=== PATIENT | male | born 1965 | race Caucasian/White ===

== ENCOUNTER 2016-04-16 04:10 | Emergency (ER) | payer MEDICAID ==
[~2016-04-16] VITALS: Ht 177.8 cm; Wt 102.5 kg
[~2016-04-16 04:10] MED LIST: CALC667T2 PO; LISI2.5T59 PO; NEPH PO
[2016-04-16 04:13] VITALS: Ht 177.8 cm; Wt 102.5 kg
[2016-04-16] MEDS ORDERED: SOD CHLORIDE 0.9% 1,000 ML IV STA (06:11)
[2016-04-16] MEDS ORDERED: METOCLOPRAMIDE 10 MG INJ IV STA (06:11)
[2016-04-16] MEDS ORDERED: DIPHENHYDRAMINE 50 MG INJ IV STA (06:11)
[2016-04-16] MEDS ORDERED: ONDANSETRON (ODT) 4 MG TAB ODT STA (06:47)
[2016-04-16] MEDS ORDERED: ACETAMINOPHEN 500 MG TAB PO STA (06:59)
[2016-04-16] MEDS ORDERED: OXYCODONE/ACETAMINOPHEN (5/325) TAB PO ONE (07:00)
--- NOTE | 2016-04-16 07:35 | RADRPT ---
PROCEDURE: CT Cervical Spine. CLINICAL INDICATION: Neck pain TECHNIQUE: A CT of the cervical spine was performed on a [employer] 64-slice CT scanner utilizi ng high-resolution axial imaging from the skull base through the cervical thoracic junction. Sagitt al, coronal, and multiplanar reformatted images were made. CTD I: 22.25 mGy and DLP: 499 mGy-cm One or more of the following dose reduction techniques were used: Automated exposure control. Adjustment of the mA and/or kV according to patient size. Use of iterative reconstruction technique. COMPARISON: None FINDINGS: There is straightening of the cervical lordosis. No vertebral body subluxation is seen. No fracture s are evident. The posterior elements are normally aligned. The surrounding soft tissues are irasema l in appearance. Mild degenerative changes of the atlantoaxial joint are present. C2-C3: The disk height is maintained. There is a small left-sided uncovertebral spurring with minim al facet arthropathy. The central canal and bilateral neural foramina are adequately patent. C3-C4: The disk height is maintained. There is a diffuse disk bulge with small uncovertebral spurr ing and mild facet arthropathy. The combination of the finding result in mild bilateral neural fora john and central canal stenosis. C4-C5: The disk height is maintained. Broad-based central disk protrusion, prominent right-sided u ncovertebral spurring with mild facet arthropathy are seen at this level. There is moderate right n eural foraminal stenosis. There is mild central canal stenosis. Left neural foramen is adequately patent. C5-C6: There is mild to moderate disk height loss. Disk osteophyte complex, prominent uncovertebra l spurring and minimal facet arthropathy are seen at this level. There is moderate to severe right and moderate left neural foraminal stenosis. There is moderate central canal stenosis. C6-C7: There is mild disk height loss. Disk osteophyte complex, prominent left-sided uncovertebral spurring with mild facet arthropathy are seen at this level. There is moderate to severe left and moderate right neural foraminal stenosis. There is mild to moderate central canal stenosis. C7-T1: The disk height is maintained. There is prominent left-sided uncovertebral spurring with mi nimal facet arthropathy. There is moderate left neural foraminal stenosis. There is mild right karen ral foraminal stenosis. The central canal remains adequately patent. IMPRESSION: 1. No acute fracture or traumatic malalignment. 2. Cervical spondylosis more evident at C4-C5 through C7-T1. At C5-C6: Moderate central canal stenosis. Moderate to severe right and moderate left neural forami nal stenosis. At C6-C7: Mild to moderate central canal stenosis. Moderate to severe left and moderate right neura l foraminal stenosis. C4-C5: Moderate right neural foraminal and mild central canal stenosis. C7-T1: Moderate left neural foraminal stenosis. RPTAT: EE .Candida Dorman MD, Date Time Electronically viewed and signed by .Candida Dorman MD, on 04/16/2016 07:35 .O/
--- NOTE | 2016-04-16 07:38 | RADRPT ---
PROCEDURE: CT Brain without contrast. CLINICAL INDICATION: Headache TECHNIQUE: A CT of the brain was performed on a multidetector CT scanner utilizing axial sections from the skull base through the vertex without contrast. Images were reviewed on a high-resolution [employer] workstation. Exam CTDI = 44.11 mGy and the DLP = 720.23 mGy-cm. One or more of the following dose reduction techniques were used: Automated exposure control Adjustment of the mA and/or kV according to patient size. Use of iterative reconstruction technique. COMPARISON: None available FINDINGS: There is no evidence of intracranial hemorrhage, mass effect or midline shift. No abnormal intra-ax ial or extra-axial fluid collections are seen. The density of the brain is normal and the escobedo/whit e matter differentiation is well preserved. The osseous structures and visualized paranasal sinuse s are unremarkable. Extensive dural calcifications are present. IMPRESSION: 1. No intracranial hemorrhage, mass effect or midline shift. RPTAT: EE .Candida Dorman MD, MD Date Time Electronically viewed and signed by .Candida Dorman MD, on 04/16/2016 07:37 .O/
[2016-04-16 07:52] VITALS: BP 177/74; PULSE 77
[2016-04-16] MEDS ORDERED: CYCL-319 PO (07:53)
[2016-04-16] MEDS ORDERED: OXYC-279 PO (07:53)
--- NOTE | 2016-04-16 09:09 | ERD ---
DATE OF SERVICE: 04/16/2016 HISTORY OF PRESENT ILLNESS: The patient is a 50-year-old male coming in complaining of neck pain an d headache. The patient states that he has had these symptoms for the last 2 months, they usually c ome and go away. He has not had any traumatic injury, no numbness or tingling. He took Tylenol, it usually relieves his symptoms; however, today has not improved his symptoms. Last dose of Tylenol was taken 12 hours ago. He describes it as a sharp, shooting pain radiating from his neck and exten ds up the bilateral occipital regions. He has had no vomiting, no vision changes, no dizziness, no fevers, no chest pain, no shortness of breath, no weakness. MEDICAL HISTORY: Renal failure, on dialysis. Last dialysis was 2 days ago. ALLERGIES: TO MEDICATIONS: Denies. SURGICAL HISTORY: Denies. SOCIAL HISTORY: Denies. REVIEW OF SYSTEMS: A 12-point review of systems was done. Refer to HPI for positives, all other sy stems negative. PHYSICAL EXAMINATION VITAL SIGNS: Temperature is 98.2, pulse 79, blood pressure /81, respiratory rate 20, O2 satura tion 99% on room air. Pain intensity is 10/10. GENERAL: The patient is well appearing, well-nourished, no acute distress. HEART: Regular rate and rhythm. No murmurs, clicks, rubs or gallops. No S3 or S4. CHEST: Clear to auscultation bilaterally. There are no rales, wheezes or rhonchi. HEENT: Atraumatic. Conjunctivae are pink. Pupils equal, round, and reactive to light. There is no s cleral icterus. Tympanic membranes clear bilaterally. Oropharynx clear. No nystagmus or photophobia . ABDOMEN: Soft, nontender and nondistended. Good bowel sounds. No rebound or guarding. No gross namrata tonitis. No gross organomegaly or masses. No Holden sign or McBurney point tenderness. SKIN: There is no apparent rash or petechia. The skin is warm and dry. NEURO: Alert and oriented. Cranial nerves 2-12 intact. Motor strength in all 4 extremities with 5/5 strength. Sensation grossly intact. Normal speech and gait. Babinski negative. DTR 2+ throughout. NECK: Patient has mild tenderness to palpation over the paraspinous muscles with some tenderness to palpation to the lower bilateral occipital regions. There is no midline tenderness, no bony step-o ffs. EMERGENCY ROOM COURSE: The patient had a brain CT done in the ER. Brain CT showed no intracranial hemorrhage, mass , or midline shift. The patient also had a cervical spine CT which showed: 1. No acute fracture or traumatic malalignment. 2. Cervical spondylosis more evident at C4-C5 through C7-T1. At C5-C6, moderate central canal sten osis, moderate to severe on the right, and moderate left neural foraminal stenosis. C6-C7 has mild to moderate central canal stenosis, moderate to severe, and moderate right neural foraminal stenosis . At C4-C5 has moderate right neural foraminal and mild central canal stenosis, and C7-T1 is modera te left neural foraminal stenosis. The patient was given Tylenol in the ER. He was not given anything stronger, as he is driving. The case was discussed with Dr. Martinez, given patient is a dialysis patient. However, patient's vi zhane signs are stable. Patient is nontoxic-appearing, is not complaining of weakness or appearing al tered, so there was no indication for blood work at this time, as I feel the patient's pain is likel y secondary to stenosis of the spine radiating and causing irritation to the nerves. DIAGNOSIS: Cervical radiculopathy. MEDICAL DECISION MAKING: I have low suspicion for intracranial hemorrhage or mass effect. Low susp icion for neuro deficit, and we did not feel there was indication for blood work at this time, as maame mtz's pain is radiating from the cervical spine, up in occipital lobe, and is likely nerve impinge ment irritation. I have low suspicion for sepsis, low suspicion for meningitis. DISCHARGE: The patient is discharged stable. Patient given prescription for Percocet and Flexeril and told to follow up with primary care within 1 to 2 days for reevaluation. The patient was told i f symptoms progress or worsen to return to the ER. All other questions answered at time of discharg e. Discharge summary given at the time of departure. Patient understood and complied with plan. P atient was told if symptoms change or worsen, to immediately return to the ER for further evaluation . He understood. Dictated By: JOHNSON CHIN PA for BUTCH MARTINEZ MD /NTS Conf#: [id number] [facility]#: [id number]
== END 2016-04-16 08:11 | disposition home or self-care (01) ==
LOC: FTE 04:10
DX: M54.12 Radiculopathy, cervical region (principal); I12.9 Hypertensive chronic kidney disease with stage 1 through stage 4 chronic kidney disease, or unspecified chronic kidney disease; N18.9 Chronic kidney disease, unspecified; Z99.2 Dependence on renal dialysis
CPT/HCPCS: 70450; 72125; Z7610; J1200; J2765; J7030

== ENCOUNTER 2016-04-19 09:06 | Emergency (ER) | payer MEDICAID ==
[~2016-04-19] VITALS: Wt 105.0 kg
[~2016-04-19 09:06] MED LIST changes: +CYCL-319 PO; +OXYC-279 PO
--- NOTE | 2016-04-19 10:21 | ERD ---
ER Documentation Chief Complaint Date/Time DATE: 04/19/16 TIME: 10:20 Chief Complaint NECK AND HEAD PAIN NONTRAUMATIC. SEEN FOR SAME 5 DAYS AGO . NO RELIEF HPI 50 y/o male presents to ED for neck pain and headache. Pain was described as achy non-radiating with a pain rate of 7/10. Patient stated that the pain is worse whenever he moves. States that pain gradually increases with unknown specific time and date of exact onset. Was here 3-5 days ago for the same complaint CT cervical spine, CT head was done at that time and results was no acute hemorrhage, fracture. Was discharged and prescribed with oxycodone, Flexeril. Denies that this is the worst headache of his life, loss of consciousness, dizziness, blurry vision, changes in vision, photophobia, facial pain, ear pain , throat pain, difficulty swallowing, shoulder pain, chest pain, cough, hemoptysis, abdominal pain, back pain, loss of appetite, nausea, vomiting, hematochezia, diarrhea, constipation, urinary symptoms, bladder and bowel incontinences, extremity weakness, extremity tenderness, numbness or tingling sensation, difficulty walking, recent travel, recent exposure to illness, recent antibiotic use in the last 3 months, fever, chills. Allergy: NKA PMH: Hypertension, renal disease (hemodialysis MWF) Medications: Flexeril, oxycodone, lisinopril Surgery: Hemodialysis placement to left upper arm. 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 Denies smoking, use of alcohol, use of illegal drugs. ROS All systems reviewed and are negative except as per history of present illness. Medications Home Meds Active Scripts Cyclobenzaprine Hcl* (Cyclobenzaprine Hcl*) 10 Mg Tablet, 10 MG PO TID, #15 TAB Prov:ADARSH CHIN PA-C 04/16/16 Oxycodone HCl/Acetaminophen (Percocet 5-325 mg Tablet) 1 Each Tablet, 1 EACH PO BID, #15 TAB Prov:ADARSH CHIN PA-C 04/16/16 Reported Medications Multivit/Ca Carb/B Cmplx/Fa* (Malinda-Sharmaine*) 1 Tab Tab, 1 TAB PO DAILY, TAB 12/18/15 Lisinopril* (Lisinopril*) 2.5 Mg Tablet, 2.5 MG PO DAILY, #30 TAB 12/18/15 Calcium Acetate* (Phoslo*) 667 Mg Tablet, 1334 MG PO WITH MEALS, TAB 01/08/15 Allergies Allergies: Coded Allergies: No Known Allergy (Unverified , 02/15/16) PMhx/Soc History of Surgery: Yes (hernia sx when he was 14 y.o, fistula on theleft 2014) Anesthesia Reaction: No Hx Neurological Disorder: No Hx Respiratory Disorders: Yes (PNA 2014) Hx Cardiac Disorders: Yes (HTN) Hx Psychiatric Problems: No Hx Miscellaneous Medical Probl: Yes (Gout) Hx Alcohol Use: No Hx Substance Use: No Hx Tobacco Use: No Smoking Status: Never smoker FmHx Denies Physical Exam Vitals Vital Signs Date Time Temp Pulse Resp B/P Pulse Ox O2 Delivery O2 Flow Rate FiO2 04/19/16 09:12 98.8 69 20 184/88 98 Physical Exam CONSTITUTIONAL: Well-appearing; well-nourished; in no apparent distress. HEAD: Normocephalic; atraumatic. EYES: Conjunctiva clear, sclera non-icteric, EOM intact. PERRL Ears: Hearing intact. EACs clear, TMs non-bulging, non-inflamed, translucent & mobile, ossicles normal appearance, No obstructions, no erythema, no discharges Nose: No obstructions. No polyps. No external lesions. Mucosa non-inflamed. No external lesions, septum and turbinates normal. No rhinorrhea. No discharges. Frontal sinus is non-tender to palpation. Maxillary sinus is non-tender to palpation. MOUTH: Moist mucous membranes, no lesion, no obstructions, no vesicles, no thrush, patent airway Throat: Uvula in midline. Right tonsil is +1 with no erythema, no exudate. Left tonsil is +1 with no erythema, no exudate. Tolerating secretions well. Good gag reflex. Patent airway. Neck: Supple, without lesions, bruits, or adenopathy. No mass. Thyroid non- enlarged and non-tender to palpation. CHEST: Symmetrical chest. Respirations even and not labored. No retractions noted. CARDIOVASCULAR: Normal S1, S2. RRR. No murmurs, gallops. RESPIRATORY: Normal chest excursion with respiration; breath sounds clear and equal bilaterally; no wheezes, rhonchi, or rales. Breathing even and unlabored. Speaking in clear, full, and complete sentences w/ ease. ABDOMEN: Normal bowel sounds normal. Soft, round, non-distended, non-guarding, no tenderness, no rebound, no organomegaly, no masses, no pulsating abdominal mass. No hernia. No peritoneal signs. : No CVA tenderness. BACK: Symmetrical shoulder. Spine is midline without deformity, tenderness. No evidence of trauma or deformity. PELVIS: Stable pelvis. No evidence of trauma or deformity. MUSCULOSKELETAL: Normal gait and station. No misalignment, asymmetry, crepitation, defects, tenderness, masses, effusions, decreased range of motion, instability, atrophy or abnormal strength or tone in the head, neck, spine, ribs , pelvis or extremities. No calf tenderness. Mild tenderness to left neck on deep palpation. Patient states that there is no changes for this discomfort since the last time he was here. NEUROVASCULAR: Distal pulses are present. Pedal pulse are present, equal, and normal. Capillary refills are < 2 seconds. NEUROLOGIC: Alert and oriented x4. Speaks full and clear sentences. Cranial Nerves II-XII normal. Sensation to pain, touch, and proprioception normal. Grossly unremarkable. No neurologic deficits. Romberg test is negative. PSYCHOLOGICAL: The patients mood and manner are appropriate. No hallucinations , delusions. Not SI. Not HI. Has the capacity to decide for self SKIN: Normal for age and ethnicity; warm; dry; good turgor; no apparent lesions or exudates. No rashes, hives, discoloration. Intact. Results 24 hrs Current Medications Medications (Trade) Dose Ordered Sig/Azael Route PRN Reason Start Time Stop Time Status Last Admin Dose Admin Cyclobenzaprine HCl (Flexeril) 10 mg ONCE ONCE PO 04/19/16 10:30 04/19/16 10:31 DC 04/19/16 10:27 Procedures/MDM Examination. Disease process, medical treatment was explained to the patient and family member. They verbalized understanding and agreed with the diagnostic tests, medical treatment, and follow-up care. EKG: No evidence of acute myocardial infarction Treatment: Re-evaluation: Relieve the pain Consultation: None Differential diagnosis: Subarachnoid hemorrhage versus meningitis versus headache versus neck pain versus acute myocardial infarction versus musculoskeletal pain Medical decision makin50 y/o male presents to ED for neck pain and headache. Pain was described as achy non-radiating with a pain rate of 7/10. Patient stated that the pain is worse whenever he moves. States that pain gradually increases with unknown specific time and date of exact onset. Was here 3-5 days ago for the same complaint CT cervical spine, CT head was done at that time and results was no acute hemorrhage, fracture. Was discharged and prescribed with oxycodone, Flexeril. Patient's history, complaint, physical findings are consistent with my final diagnosis of headache, neck pain, musculoskeletal pain. Medications prescribed are the following: Instructed to continue his pain medicine occasions that was prescribed previously. Patient and family member are made aware of the side effects and adverse reactions of the medications prescribed. Instructed on when to seek emergent and medical attention in case allergic/anaphylactic reactions or severe side effects and or adverse reactions to medications. Patient and family member verbalized understanding. Patient instructed Instructed to follow-up with his PCP in 24-48 hours. PCP to refer patient to EENT, Overseamer, Pickling Grader, Net Developer, Die Barber, Urologist, Orthopedics, Tree Trimmer Helper in 24-48 hours. Instructed to Call 911 for chest pain, shortness of breath. Advised to come back here in ED as soon as possible for severity of symptoms which includes but not limited to: any new symptoms; shortness of breath/difficulty of breathing; cardiovascular changes; severe gastrointestinal symptoms; signs and symptoms of bleeding and or infection; signs of compartment syndrome/neurovascular changes; neurological changes/deficits. Patient and family member verbalized understanding. Upon discharge, patient is alert and oriented x 4, speaks full and clear sentences, denies pain, has no neurological deficits, has no neurovascular deficits, difficulty of breathing. Breathing even and unlabored. Lung sounds are clear to auscultation. Not in distress. Appears comfortable. Ambulatory with steady gait. Appears satisfied with care provided here in ED. Departure Condition: Good Additional Instructions: Follow-up with PCP in 24-48 hours. JULEE MCCULLOUGH Apr 19, 2016 10:21
[2016-04-19] MEDS ORDERED: CYCLOBENZAPRINE 10 MG TAB PO ONE (10:30)
== END 2016-04-19 10:38 | disposition home or self-care (01) ==
LOC: FTE 09:06
DX: R51 Headache (principal); I10 Essential (primary) hypertension
CPT/HCPCS: 93005; Z7610

== ENCOUNTER 2018-03-30 11:32 | Emergency (ER) | payer MEDICAID ==
[~2018-03-30] VITALS: Ht 182.9 cm; Wt 98.5 kg
[~2018-03-30 11:32] MED LIST changes: -CYCL-319 PO; +CYCL10TA7 PO
[2018-03-30 11:48] VITALS: Ht 182.9 cm; Wt 98.5 kg
[2018-03-30] MEDS ORDERED: VANCOMYCIN 1 GM (PMX) 250 ML IVPB STA (12:55)
[2018-03-30] MEDS ORDERED: PIPER-TAZO 3.375 GM IV (PMX) 100 ML IVPB STA (12:55)
[2018-03-30] MEDS ORDERED: SODIUM CHLORIDE 0.9% 1L BAG IV* STA (12:55)
--- NOTE | 2018-03-30 12:55 | ERD ---
ER Documentation Chief Complaint Chief Complaint left lower cp, sob, dialysis completed yesterday HPI 52-year-old male with a history of hypertension and CKD on hemodialysis presenting to the ER complaining of left-sided chest pain. The chest pain started about 2 days ago and is only when he takes a deep breath. Described as sharp, radiating from below his left rib all the way up to his neck. It is not worse with exertion. It is associated with shortness of breath, cough, with slightly blood-tinged sputum. He denies any associated fever, chills, nausea, vomiting, dizziness, diaphoresis, or leg swelling or pain. ROS All systems reviewed and are negative except as per history of present illness. Medications Home Meds Active Scripts Levofloxacin* (Levaquin*) 750 Mg Tablet, 750 MG PO DAILY for 5 Days, TAB Prov:JESUS BANUELOS MD 03/30/18 Reported Medications Multivit/Ca Carb/B Cmplx/Fa* (Malinda-Sharmaine*) 1 Tab Tab, 1 TAB PO DAILY, TAB 12/18/15 Lisinopril* (Lisinopril*) 2.5 Mg Tablet, 2.5 MG PO DAILY, #30 TAB 12/18/15 Calcium Acetate* (Phoslo*) 667 Mg Tablet, 1334 MG PO WITH MEALS, TAB 01/08/15 Discontinued Scripts Cyclobenzaprine Hcl* (Cyclobenzaprine Hcl*) 10 Mg Tablet, 10 MG PO TID, #15 TAB Prov:ADARSH CHIN PA-C 04/16/16 Oxycodone HCl/Acetaminophen (Percocet 5-325 mg Tablet) 1 Each Tablet, 1 EACH PO BID, #15 TAB Prov:ADARSH CHIN PA-C 04/16/16 Allergies Allergies: Coded Allergies: No Known Allergy (Unverified , 03/30/18) PMhx/Soc History of Surgery: Yes (hernia sx when he was 14 y.o, fistula on thele) Anesthesia Reaction: No Hx Neurological Disorder: No Hx Respiratory Disorders: Yes (PNA 2014) Hx Cardiac Disorders: Yes (HTN) Hx Psychiatric Problems: No Hx Miscellaneous Medical Probl: Yes (Gout, HD WMF) Hx Alcohol Use: No Hx Substance Use: No Hx Tobacco Use: No Smoking Status: Never smoker FmHx Family History: No coronary disease Physical Exam Vitals Vital Signs Date Temp Pulse Resp B/P (MAP) Pulse Ox O2 O2 Flow FiO2 Time Delivery Rate 03/30/18 98.5 109 18 139/65 95 11:48 (89) Physical Exam Const: No acute distress Head: Atraumatic Eyes: Normal Conjunctiva ENT: Normal External Ears, Nose and Mouth. Neck: Full range of motion. No meningismus. Resp: Crackles in the left lower lateral and posterior lung arnold. No wheezing Cardio: Tachycardic with regular rhythm, no murmurs. 2+ distal pulses Abd: Soft, non tender, non distended. Normal bowel sounds Skin: No petechiae or rashes Back: No midline or flank tenderness Ext: No cyanosis, or edema Neur: Awake and alert Psych: Normal Mood and Affect Result Diagram: 03/30/18 1232 03/30/18 1232 Results 24 hrs Laboratory Tests Test 03/30/18 12:32 03/30/18 13:22 White Blood Count 19.0 10^3/ul Red Blood Count 3.57 10^6/ul Hemoglobin 10.9 g/dl Hematocrit 32.6 % Mean Corpuscular Volume 91.3 fl Mean Corpuscular Hemoglobin 30.5 pg Mean Corpuscular Hemoglobin Concent 33.4 g/dl Red Cell Distribution Width 12.9 % Platelet Count 223 10^3/UL Mean Platelet Volume 12.0 fl Immature Granulocytes % 0.900 % Neutrophils % 84.1 % Lymphocytes % 7.1 % Monocytes % 7.5 % Eosinophils % 0.2 % Basophils % 0.2 % Nucleated Red Blood Cells % 0.0 /100WBC Immature Granulocytes # 0.180 10^3/ul Neutrophils # 16.0 10^3/ul Lymphocytes # 1.4 10^3/ul Monocytes # 1.4 10^3/ul Eosinophils # 0.0 10^3/ul Basophils # 0.0 10^3/ul Nucleated Red Blood Cells # 0.0 10^3/ul Sodium Level 134 mmol/L Potassium Level 4.1 mmol/L Chloride Level 96 mmol/L Carbon Dioxide Level 25 mmol/L Anion Gap 13 Blood Urea Nitrogen 51 mg/dl Creatinine 8.06 mg/dl Est Glomerular Filtrat Rate mL/min 7 mL/min Glucose Level 103 mg/dl Calcium Level 8.9 mg/dl Troponin I 0.037 ng/ml POC Venous Lactate 1.1 mmol/L Current Medications Medications Dose Sig/Azael Start Time Status Last (Trade) Ordered Route PRN Stop Time Admin Dose Reason Admin Sodium 2,960 ml BOLUS OVER 2 03/30/18 DC Chloride HOURS STAT 12:55 03/30/18 (NS) IV* 13:36 Vancomycin 250 ml @ ONCE STAT 03/30/18 HCl 125 mls/hr IVPB 12:55 03/30/18 14:54 Piperacillin 100 ml @ ONCE STAT 03/30/18 DC 03/30/18 Sod/ 200 mls/hr IVPB 12:55 03/30/18 13:56 Tazobactam 13:24 Sod Sodium 1,000 ml @ Q1H STAT 03/30/18 03/30/18 Chloride 1,000 mls/hr IV 13:35 03/30/18 13:57 14:34 Procedures/MDM EMERGENT LABS AND DIAGNOSTIC STUDIES: Lab Results above were reviewed and interpreted by me. CBC: Leukocytosis, concerning for infection. Mild anemia CMP: Elevated BUN and creatinine, consistent with known history of chronic kidney disease. No evidence of electrolyte abnormality, hypoglycemia Troponin within normal limits, not indicative of cardiac ischemia Lactate within normal limits without evidence of sepsis or tissue hypoperfusion EKG #1: Rate/Rhythm: Sinus tachycardia at 114 bpm with PACs QRS, ST, T-waves: Right bundle branch block, no changes consistent w/ acute ischemia Impression: No evidence of ischemia or arrhythmia EKG #2: Rate/Rhythm: Sinus tachycardia at 103 bpm QRS, ST, T-waves: Right bundle branch block, no changes consistent w/ acute ischemia Impression: No evidence of ischemia or arrhythmia Radiology Results as interpreted by Radiology below were reviewed by Tiffanie Banuelos MD: Chest x-ray: No acute abnormalities noted CT Chest: Left lower lobe consolidation Initial Nursing notes reviewed. Previous Medical Records requested via the Electronic Health Record. EMERGENCY DEPARTMENT COURSE / MEDICAL DECISION MAKING: Patient is presenting with left-sided chest pain and a cough. Vitals were initially notable for tachycardia only but he was afebrile and well-appearing. However at 1254 patient's white blood cell count was noted to be elevated to 19, concerning for acute infection. Sepsis workup was initiated. There was no evidence of severe sepsis or septic shock. As chest x-ray did not show any acute abnormalities, CT chest was done showing a left lower lobe pneumonia. Patient remained hemodynamically stable while in the ED. There is no signs of respiratory failure. I feel the patient is stable for discharge with outpatient management of pneumonia. Antibiotics were given here. He will be discharged with a prescription for levofloxacin and instructed to return for any worsening symptoms. Patient feels comfortable with the discharge plan. Departure Diagnosis: Primary Impression: Pneumonia Pneumonia type: due to unspecified organism Laterality: left Lung location: lower lobe of lung Qualified Codes: J18.1 - Lobar pneumonia, unspecified organism Additional Impressions: Chest pain Chest pain type: chest pain on breathing Qualified Codes: R07.1 - Chest pain on breathing CKD (chronic kidney disease) Condition: Stable EKJESUS DELGADILLO MD Mar 30, 2018 12:55
[2018-03-30] MEDS ORDERED: SOD CHLORIDE 0.9% 1,000 ML IV STA (13:35)
[2018-03-30] MEDS ORDERED: LEVO750T25 PO (14:16)
[2018-03-30 17:13] VITALS: BP 154/60; PULSE 88; RESP 16
== END 2018-03-30 17:15 | disposition home or self-care (01) ==
LOC: E/R 11:32
DX: J18.1 Lobar pneumonia, unspecified organism (principal); R07.1 Chest pain on breathing; I12.9 Hypertensive chronic kidney disease with stage 1 through stage 4 chronic kidney disease, or unspecified chronic kidney disease; N18.9 Chronic kidney disease, unspecified; Z99.2 Dependence on renal dialysis
CPT/HCPCS: 36415; 71045; 71250; 80048; 83605; 84484; 85025; 87040; 93005; 96361; 96365; 96366; 96375; J2543; J3370; J7030; Z7502